=== PATIENT | female | born 1990 | race Two or more races ===

== ENCOUNTER 2020-05-02 15:58 | Emergency (ER) | payer MEDICAID ==
[~2020-05-02] VITALS: Ht 165.1 cm; Wt 63.5 kg
[2020-05-02 15:58] VITALS: BP 117/78
[2020-05-02] MEDS ORDERED: KETOROLAC TROMETHAMINE INJ 60 MG/2 ML VIAL IM ONE (17:00)
[2020-05-02] MEDS ORDERED: KETOROLAC TROMETHAMINE INJ 30 MG/ML VIAL ONE (17:13)
--- NOTE | 2020-05-02 17:29 | NUR ---
Patient discharged to home in stable condition. Written and verbal after care instructions given. Patient verbalizes understanding of instruction. Pt ambulatory with a steady gait
== END 2020-05-02 17:25 | disposition home or self-care (01) ==
LOC: ER 16:01
DX: U07.1 COVID-19 (principal); J12.89 Other viral pneumonia
CPT/HCPCS: 71045; 96372; 99283; J1885

== ENCOUNTER 2020-05-14 18:00 | Emergency (ER) | payer MEDICAID ==
[~2020-05-14] VITALS: Ht 162.6 cm; Wt 66.7 kg
--- NOTE | 2020-05-14 18:30 | NUR ---
"COVID + 2wks ago, +cough, Chest pressure last couple days ". PT AAOX4, VSS. RR EVEN & UNLABORED. DENIES DIZZINESS, N/V, ARM/JAW PAIN, WEAKNESS AT THIS TIME. PT SEEN & EVAL'D BY DR. DE LA ROSA. WILL CONT TO MONITOR.
[2020-05-14 18:44] LABS: BASOPHILS % (AUTO) 0.5 % (0.0-2.0); EOSINOPHILS % (AUTO) 1.8 % (0.0-6.0); HEMATOCRIT 39 % (33-45); HEMOGLOBIN 12.7 g/dL (11.5-14.8); LYMPHOCYTES # (AUTO) 2.6 /CMM (0.8-4.8); LYMPHOCYTES % (AUTO) 31.6 % (20.0-44.0); MEAN CORPUSCULAR HGB CONC 33 g/dl (31.0-36.0); MEAN CORPUSCULAR VOLUME 89 fL (82-100); MONOCYTES # (AUTO) 0.6 /CMM (0.1-1.30); MONOCYTES % (AUTO) 7.1 % (2.0-12.0); NEUTROPHILS # (AUTO) 4.9 /CMM (1.8-8.9); PLATELET COUNT (AUTO) 265 /CMM (150-450); RED BLOOD CELL COUNT(AUTO) 4.36 MIL/uL (4.0-5.2); WHITE BLOOD COUNT (AUTO) 8.2 K/uL (4.3-11.0)
[2020-05-14 18:51] LABS: CALCIUM, SERUM 8.9 mg/dL (8.5-10.1); CREATININE 0.7 mg/dL (0.6-1.3); POTASSIUM 4.1 mmol/L (3.5-5.1)
[2020-05-14 18:57] LABS: BILIRUBIN,DIRECT 0.1 mg/dL (0.0-0.2); BILIRUBIN,TOTAL 0.4 mg/dL (0.2-1.0); TOTAL PROTEIN, SERUM 7.7 g/dL (6.4-8.2)
[2020-05-14 19:38] LABS: APPEARANCE,URINE Clear (CLEAR); BILIRUBIN,URINE Negative (NEGATIVE); BLOOD, URINE Trace-intact Ery/uL (NEGATIVE); COLOR,URINE Yellow (YELLOW); KETONES,URINE Negative (NEGATIVE); LEUKOCYTE ESTERASE ,URINE Negative (NEGATIVE); NITRITE, URINE Negative (NEGATIVE); PH,URINE 5.5 (5.0-8.0); PROTEIN,URINE Negative (NEGATIVE); UGLUCOSE Negative (NEGATIVE); UROBILINOGEN,URINE 0.2 EU/dL (0.2)
[2020-05-14 19:47] LABS: BACTERIA,URINE Many /HPF (None Seen); SQUAMOUS EPITHELIAL CELL,UR Few /HPF (None Seen)
[2020-05-14 19:48] LABS: RBC,URINE 0-2 /HPF (0-2); WBC,URINE 0-2 /HPF (0-3)
--- NOTE | 2020-05-14 20:13 | NUR ---
Patient discharged to home in stable condition. Written and verbal after care instructions given. Patient verbalizes understanding of instruction.
[2020-05-14 20:20] VITALS: BP 110/75
== END 2020-05-14 20:20 | disposition home or self-care (01) ==
LOC: ER 18:00
DX: R10.9 Unspecified abdominal pain (principal); Z90.89 Acquired absence of other organs
CPT/HCPCS: 36415; 71045-TC; 80048-TC; 80076-TC; 81000-TC; 83690-TC; 84703-TC; 85025-TC; 87086-TC

== ENCOUNTER 2020-06-16 19:52 | Emergency (ER) | payer SELFPAY | END 2020-06-16 21:50 | disposition home or self-care (01) | DX: R07.89 Other chest pain (principal); Z90.89 Acquired absence of other organs ==

== ENCOUNTER 2021-08-27 03:26 | Emergency (ER) | payer MEDICAID ==
[~2021-08-27] VITALS: Ht 165.1 cm; Wt 71.2 kg
--- NOTE | 2021-08-27 03:48 | NUR ---
URINE SENT TO LAB
--- NOTE | 2021-08-27 03:54 | NUR ---
ANATOMY AND PHYSIOLOGY INSTRUCTOR @ BEDSIDE
--- NOTE | 2021-08-27 03:54 | NUR ---
PATIENT REFUSED TO GET SALINE LOCK.
--- NOTE | 2021-08-27 03:54 | NUR ---
@ BEDSIDE DOING US
--- NOTE | 2021-08-27 04:22 | NUR ---
US AT BEDSIDE
[2021-08-27] MEDS ORDERED: MORPHINE SULFATE INJ 2 MG/ML DISP.SYRIN IV ONE (04:30)
[2021-08-27] MEDS ORDERED: ONDANSETRON HCL/PF 4 MG/2 ML VIAL IVP ONE (04:30)
[2021-08-27] MEDS ORDERED: ACETAMINOPHEN ES 500 MG TABLET ONE (04:31)
--- NOTE | 2021-08-27 04:38 | NUR ---
called [facility] to begin transfer to [facility] for L&D
[2021-08-27] MEDS ORDERED: IV NS 0.9% 1,000 ML BAG IV ONE (05:00)
[2021-08-27] MEDS ORDERED: ACETAMINOPHEN ES 500 MG TABLET PO ONE (05:00)
[2021-08-27 05:01] LABS: BILIRUBIN,URINE NEGATIVE (NEGATIVE); COLOR,URINE YELLOW (YELLOW); LEUKOCYTE ESTERASE ,URINE MODERATE (NEGATIVE); NITRITE, URINE NEGATIVE (NEGATIVE); PROTEIN,URINE NEGATIVE (NEGATIVE); UGLUCOSE NEGATIVE (NEGATIVE); UROBILINOGEN,URINE 0.2 EU/dL (0.2)
--- NOTE | 2021-08-27 05:03 | NUR ---
SPOKE TO PANKAJ L&D NIKI NURSE AT [facility]. PT GOT ACCEPTED AT [facility] L&D DEPARTMENT BY DR PHILLIPS.
[2021-08-27 05:09] LABS: BASOPHILS % (AUTO) 0.4 % (0.0-2.0); HEMATOCRIT 32 % (33-45); HEMOGLOBIN 10.9 g/dL (11.5-14.8); LYMPHOCYTES # (AUTO) 2.4 K/uL (0.8-4.8); LYMPHOCYTES % (AUTO) 20.3 % (20.0-44.0); MEAN CORPUSCULAR HGB CONC 35 g/dl (31.0-36.0); MEAN CORPUSCULAR VOLUME 94 fL (82-100); MONOCYTES # (AUTO) 0.7 K/uL (0.1-1.30); MONOCYTES % (AUTO) 6.3 % (2.0-12.0); NEUTROPHILS # (AUTO) 8.4 K/uL (1.8-8.9); PLATELET COUNT (AUTO) 153 K/uL (150-450); RED BLOOD CELL COUNT(AUTO) 3.34 MIL/uL (4.0-5.2); WHITE BLOOD COUNT (AUTO) 11.7 K/uL (4.3-11.0)
[2021-08-27 05:26] VITALS: BP 110/66
--- NOTE | 2021-08-27 05:26 | NUR ---
Patient discharged to [facility] via ambulance in stable condition.
[2021-08-27 06:03] LABS: BILIRUBIN,DIRECT 0.1 mg/dL (0.0-0.2); BILIRUBIN,TOTAL 0.4 mg/dL (0.2-1.0); CALCIUM, SERUM 8.4 mg/dL (8.5-10.1); CREATININE 0.7 mg/dL (0.6-1.3); POTASSIUM 3.6 mmol/L (3.5-5.1)
[2021-08-27 07:21] LABS: BACTERIA,URINE Many /HPF (None Seen); CALCIUM OXALATE CRYSTALS,UR Moderate /HPF (None Seen); SQUAMOUS EPITHELIAL CELL,UR Moderate /HPF (None Seen); WBC,URINE 0-2 /HPF (0-3)
--- NOTE | 2021-08-27 08:30 | NUR ---
MIAN FROM [facility] CALLED REQUESTING LABS FAXING TO [phone] TEL [phone]
== END 2021-08-27 05:42 | disposition short-term general hospital (02) ==
LOC: ER 03:28
DX: O99.613 Diseases of the digestive system complicating pregnancy, third trimester (principal); K80.20 Calculus of gallbladder without cholecystitis without obstruction; Z3A.29 29 weeks gestation of pregnancy; R82.81 Pyuria; Z20.822 Contact with and (suspected) exposure to COVID-19; O41.8X30 Other specified disorders of amniotic fluid and membranes, third trimester, not applicable or unspecified; Z3A.49 Greater than 42 weeks gestation of pregnancy
CPT/HCPCS: 36415; 76705; 76805; 80048; 80076; 81001; 83690; 84702; 85025; 86850; 87086; 87426; 96360; 99285; C9803